=== PATIENT | female | born 1980 | race Caucasian/White ===

== ENCOUNTER 2019-04-18 17:31 | Emergency (ER) | payer OTHER ==
[~2019-04-18] VITALS: Ht 157.5 cm; Wt 60.3 kg
[2019-04-18] MEDS ORDERED: LAMICTAL150 M1 (17:38)
[2019-04-18] MEDS ORDERED: PRENATAL TABLE1 EAC1 (17:38)
== END 2019-04-18 22:51 | disposition home or self-care (01) ==
LOC: ER 17:31
DX: O21.8 Other vomiting complicating pregnancy (principal); Z34.81 Encounter for supervision of other normal pregnancy, first trimester

== ENCOUNTER 2021-06-05 19:41 | Emergency (ER) | payer OTHER ==
[~2021-06-05] VITALS: Ht 157.5 cm; Wt 59.0 kg
[~2021-06-05 19:41] MED LIST: LAMICTAL150 M1; PRENATAL TABLE1 EAC1
[2021-06-06] MEDS ORDERED: KETO10TA2 PO (01:40)
== END 2021-06-06 01:51 ==
LOC: ER 19:41
DX: S60.211A Contusion of right wrist, initial encounter (principal); W18.30XA Fall on same level, unspecified, initial encounter; Y93.9 Activity, unspecified; Y92.410 Unspecified street and highway as the place of occurrence of the external cause; Y99.9 Unspecified external cause status; M79.642 Pain in left hand

== ENCOUNTER 2021-09-25 19:18 | Emergency (ER) | payer OTHER ==
[~2021-09-25] VITALS: Ht 157.5 cm; Wt 56.7 kg
[~2021-09-25 19:18] MED LIST changes: +KETO10TA2 PO
[2021-09-25] MEDS ORDERED: MD PARA B/P (19:53)
[2021-09-25] MEDS ORDERED: LEVOTHYROXINE25 MCG (19:53)
== END 2021-09-25 23:56 | disposition home or self-care (01) ==
LOC: ER 19:18
DX: S00.93XA Contusion of unspecified part of head, initial encounter (principal); Y08.89XA Assault by other specified means, initial encounter; Y93.9 Activity, unspecified; Y92.89 Other specified places as the place of occurrence of the external cause; Y99.9 Unspecified external cause status; I10 Essential (primary) hypertension

== ENCOUNTER 2022-01-22 13:50 | Emergency (ER) | payer OTHER ==
[~2022-01-22] VITALS: Ht 157.5 cm; Wt 56.7 kg
[~2022-01-22 13:50] MED LIST changes: +LEVOTHYROXINE25 MCG; +MD PARA B/P
== END 2022-01-22 18:41 | disposition home or self-care (01) ==
LOC: ER 13:50
DX: J06.9 Acute upper respiratory infection, unspecified (principal); I10 Essential (primary) hypertension; Z20.822 Contact with and (suspected) exposure to COVID-19

== ENCOUNTER 2023-04-11 19:29 | Emergency (ER) | payer OTHER ==
[~2023-04-11] VITALS: Ht 157.5 cm; Wt 56.7 kg
[2023-04-11] MEDS ORDERED: KETOROLAC TROMETHAMINE 60 MG VIAL IM STA (22:33)
[2023-04-11] MEDS ORDERED: CLONIDINE HCL 0.1 MG TABLET PO STA (22:34)
== END 2023-04-12 00:13 | disposition home or self-care (01) ==
LOC: ER 19:29
DX: S00.83XA Contusion of other part of head, initial encounter (principal); X58.XXXA Exposure to other specified factors, initial encounter; Y93.89 Activity, other specified; Y92.89 Other specified places as the place of occurrence of the external cause; Y99.8 Other external cause status; I10 Essential (primary) hypertension; M43.6 Torticollis

== ENCOUNTER 2023-10-25 16:13 | Emergency (ER) | payer OTHER ==
[~2023-10-25] VITALS: Ht 157.5 cm; Wt 57.6 kg
[2023-10-25] MEDS ORDERED: LABETALOL HCL 100 MG/20 ML ML IV ONE (17:15)
[2023-10-25] MEDS ORDERED: FUROsemide 20 MG/2 ML VIAL IV ONE (17:15)
[2023-10-25] MEDS ORDERED: LABETALOL HCL 100 MG/20 ML ML ONE (17:33)
[2023-10-25] MEDS ORDERED: FUROsemide 20 MG/2 ML VIAL ONE (17:33)
[2023-10-25 17:50] LABS: HEMATOCRIT 41.9 % (36.0-45.00); HEMOGLOBIN 14.3 g/dL (12.0-15.00); MEAN CELL VOLUME 92.7 fL (80.00-100.00); MEAN CORPUSCULAR HEMOGLOBIN 31.7 pg (27.00-32.0); MEAN CORPUSCULAR HGB CONC 34.2 g/dl (32.0-36.0); PLATELET COUNT 466 K/uL (150-450); RED BLOOD COUNT 4.52 M/uL (4.00-6.00); RED CELL DISTRIBUTION WIDTH 13.8 % (11.5-14.5)
[2023-10-25 18:16] LABS: ALBUMIN 4.2 gm/dL (3.4-5.0); BILIRUBIN TOTAL 0.21 mg/dL (0.3-1.2); CALCIUM 9.7 mg/dL (8.5-10.1); CREATININE SERUM 0.81 mg/dL (0.55-1.02); GFR 76.81; GLOBULINA 3.9 G/DL (2.4-3.5); TOTAL PROTEIN 8.1 gm/dL (6.4-8.2)
[2023-10-25 18:17] LABS: ALT/SGPT 24 U/L (12-78); AST/SGOT 18 U/L (15-37); LDH 206 U/L (84-246); PHOSPHOKINASE CREATININE 103 U/L (26-192)
[2023-10-25] MEDS ORDERED: LOSARTAN-HCTZ1 EACH PO (19:28)
[2023-10-25] MEDS ORDERED: CLONIDINE HCL 0.1 MG TABLET PO ONE ×2 (19:28→19:30)
== END 2023-10-25 19:33 | disposition home or self-care (01) ==
LOC: ER 16:14
PROVIDERS: Nurse Practitioner Family
DX: I10 Essential (primary) hypertension (principal); R51.9 Headache, unspecified; G40.802 Other epilepsy, not intractable, without status epilepticus; Z20.822 Contact with and (suspected) exposure to COVID-19